=== PATIENT | female | born 1955 | race Caucasian/White ===

== ENCOUNTER → 2018-06-01 14:31 | Outpatient (CLI) | payer OTHER, SELFPAY ==
[2018-05-25 13:33] VITALS: BMI 31.8
--- NOTE | 2018-06-01 13:00 | ASPS_PTH ---
PATIENT: STEPHANIA PERES LOC: [facility] U#:[id number] AGE/SX: 69/F ROOM: RE06/01/[address]: Dr. Tae Samaniego MD : 1955 BED: DIS: SPEC #: [id number] RECD: 06/01/18 14:27 STATUS: SARAH REEulogio #: [id number] CAMMIE: 06/01/18 13:[address]: Tae Samaniego DEPT: CYTOLOGY RECD BY: Jose A Pierre ENTERED: 06/02/18 10:06 SP TYPE: ASPIRATION OTHR DR: Dr. Keven Hinds MD Tissues: Thyroid gland, NOS Procedures: FNA Specimen Adequacy Pap Stain (control) Special Stain Group II Surgery Specimen Level IV Cytology Other HEADER OPERATION: Ultrasound-guided fine needle aspiration left thyroid PRE-OP DIAGNOSIS: Multinodular goiter E04.2 TISSUE SUBMITTED: Fine needle aspiration left thyroid DIAGNOSIS CYTOLOGY Fine needle aspiration, left thyroid nodule (smear): Adequate for evaluation. Benign, consistent with benign follicular nodule. Mild chronic inflammation. AM:clover 06/05/18 COMMENT Immediate cytologic evaluation to determine adequacy is not applicable. CYTOLOGY STUDY Slides are reviewed. CYTOLOGY GROSS Received are 12 smears labeled with the patient's name and designated per the requisition as left thyroid. Submitted for staining. 06/02/18 TC: 5 CPT: 38922
--- OUTSIDE RECORDS SUMMARY | 2018-08-06 09:45 | XMS RPT_ITS ---
:1955 Author Organization OHIP Care Team Providers Name Role Phone FREDRICK MONTEZ (MEDIA JOB TITLES) Attending Unavailable YOAN VILLELA Referring Unavailable MELIDAMERARIE (MEDIA JOB TITLES) Referring Unavailable MELIDA, FREDRICK (MEDIA JOB TITLES) Referring Unavailable MELIDA, FREDRICK (MEDIA JOB TITLES) Referring Unavailable MELIDA, FREDRICK (MEDIA JOB TITLES) Referring Unavailable Tae Samaniego Attending Unavailable Yoan Villela Referring Unavailable Tae Samaniego Attending Unavailable Yoan Villela Referring Unavailable Tae Samaniego Attending Unavailable Tae Samaniego Referring Unavailable Yoan Villela Primary Care Unavailable PROBLEMS PROBLEMS DATE TYPE CONDITION / CODE ATTENDING STATUS SOURCE 06/01/2018 Unknown E04.2 - Nontoxic Tae Samaniego Active [place] [facility]ular [facility] goiter [facility] E04.2(ICD-10) Repository 04/27/2018 Active Encounter for NA Active [facility] screening [facility] mammogram for Repository malignant neoplasm of breast / Z12.31(ICD-10) 04/02/2016 Active Nontoxic NA Active [facility] multinodular [facility] [place] goiter / Repository E04.2(ICD-10) 04/27/2018 Active Encounter for NA Active [facility] screening for [facility] [place] lipoid disorders / Repository Z13.220(ICD-10) 04/27/2018 Active Encounter for NA Active [facility] screening for [facility] [place] diabetes mellitus Repository / Z13.1(ICD-10) 04/27/2018 Active Elevated NA Active [facility] blood-pressure [facility] [place] reading, without Repository diagnosis of hypertension / R03.0(ICD-10) 04/27/2018 Active Encounter for NA Active [facility] screening for [facility] [place] other viral Repository diseases / Z11.59(ICD-10) PROCEDURES PROCEDURES No Procedure Records FoundRESULTS RESULTS ASPIRATION (SLIDES Observed: 06/01/2018 Status: F Source: [place] ONLY) 1:00 PM [facility] REPOSITORY Patient: AFIA CARIAS : 1955 (62/F) Acct Num: [id number] Phys: Aden FERREIRA,Tae Unit Num: [id number] Loc: LABSPEC Specimen: [id number] Received: 06/01/18 - 142 Spec Type: ASPIRATION TISSUES 1 TISSUES: Thyroid gland, NOS COMMENT Immediate cytologic evaluation to determine adequacy is not applicable. CYTOLOGY GROSS Received are 12 smears labeled with the patient's name and designated per the requisition as left thyroid. Submitted for staining. / 06/02/18 TC: 5 CPT: 71554 CYTOLOGY STUDY Slides are reviewed. DIAGNOSIS CYTOLOGY Fine needle aspiration, left thyroid nodule (smear): Adequate for evaluation. Benign, consistent with benign follicular nodule. Mild chronic inflammation. AM:sp 06/05/18 HEADER OPERATION: Ultrasound-guided fine needle aspiration left thyroid PRE-OP DIAGNOSIS: Multinodular goiter E04.2 TISSUE SUBMITTED: Fine needle aspiration left thyroid Signed Garret Rodriguez DO 06/05/18 <signature on file> Performed By: #### PASPS #### [facility] [address] [place], [address] SURGERY VISIT REPORT Observed: 05/25/2018 Status: F Source: [place] 4[facility]59 [facility] RE[facility] [address] [place] [address] OFFICE VISIT Date of Service: 05/25/18 MR#: [id number] Acct: [id number] Name: AFIA CARIAS Rep #: [id number] : 1955 Provider: Tae Samaniego MD Age/Sex: 62/F Location: [facility] Status: Signed Intake Vital Signs05/25/18 Height 5 ft 6 in 05/25/18 Weight: 197 lb Intake Visit Reasons: Multinodular Goiter US [facility] 04/27 Radiological Equipment Specialist Required: No Is patient in pain?: No Allergies Penicillins Allergy (Intermediate, Verified 05/25/18 13:35) Rash Sulfa (Sulfonamide Antibiotics) Allergy (Intermediate, Verified 05/25/18 13:35) rapid heart rate, achiness Medications citalopram 20 mg tablet 20 mg PO DAILY 05/25/18 [History Confirmed 05/25/18] PFSH Medical History Depression (emotion) (Acute) Multinodular goiter (Acute) Surgical History History of section (Acute) Family History Aunt Breast cancer Father Hypertension High cholesterol Cancer skin cancer Social History Smoking Status: Unknown if ever smoked alcohol intake: current alcohol intake frequency: a few times a month substance use type: does not use HPI HPI HPI: AFIA CARIAS, is a 62 F who presents to the office today for reevaluation of multinodular goiter. Patient had a recent thyroid ultrasound on April 27, 2018. This was completed at the [facility] in [place]. This was made in comparison to the previous ultrasound which was done on March 2016. The right side had 2 nodules that had not significantly increased in size. The left side however did have a nodule that did increase in size previously it was 1.9 x 1 x 1.6 and the most recent one showed that it increased in size to 2.1 x 1.2-2 cm this is more than a 20% increase in volume. She has not had any neck pain. She has had no voice changes. She has not been exposed to any recent radiation. ROS General General: No weight change, appetite, fatigue, colon cancer, breast cancer or weakness HEENT HEENT: No difficulty swallowing, eye injury, eye surgery, swollen glands or hoarseness Endo Endocrine: No thyroid disease, diabetes mellitus, thyroid cancer, Hair loss, heat intolerance or cold intolerance Skin Skin: No rash or changing moles Breast Breast: No left breast lump, right breast lump, nipple discharge, breast pain, abnormal mammogram, abnormal US or breast enlargement Musc Musculoskeletal: No back problems, arthritis, rheumatoid arthritis, gout or joint pain Cardio Cardiovascular: No murmur, pacemaker, heart disease, atrial fibrillation, high blood pressure, heart attack, heart stent, palpitations, shortness of breat with exertion or chest pain Psych Psychiatric: No depression, anxiety or hearing voices Resp Respiratory: No shortness of breath, No sleep apnea, No cough, No COPD, No asthma, No emphysema, No wheezing Gastro Gastrointestinal: No abdominal pain, No nausea or vomiting, No diarrhea, No constipation, No blood in stool, No acid reflux, No hemorrhoids, No ulcers, No gallbladder problem, No black,tarry stools Wilfredo Hematologic: No blood thinners, No blood disorders, No bleeding, No anemia, No blood clots Neuro Neurologic: No system reviewed and no additional complaints, except as docu, No as per HPI, No abnormal walking, No abnormal hearing, No abnormal movements, No abnormal speech, No behavioral changes, No burning sensations, No confusion, No seizure-like activity, No unsteadiness, No dizziness, No localized weakness, No frequent falls, No headache(s), No lack of coordination, No loss of vision, No memory loss, No numbness, No other visual disturbances, No radiating pain, No restless legs, No sensory deficit, No fainting, No tingling, No tremor(s), No weakness, No other Exam Const General: well developed, no acute distress, well hydrated Orientation: oriented to person, oriented to place, oriented to time [facility] Head: normocephalic, atraumatic Ears: external ears normal Mouth: moist mucous membranes Other: Thyroid Exam: There are no hard palpable nodules identified. I cannot palpate any lymphadenopathy. There is no tenderness on exam Eyes Sclera: sclerae normal Pupils: normal by confrontation Neck Neck: no lymphadenopathy noted Neck mass: No Thyroid: symmetrical, thyroid normal Chest Breast Palpation: No nipple discharge Cardio Heart Sounds: no murmurs Assessment AND Plan Problems 1. Multinodular goiter (nontoxic) E04.2 Plan I am going to perform a repeat fine-needle aspiration of the left thyroid nodule. Since there has not been an increase in the size in the right side it does not need to be biopsied at this time. We discussed the risks and benefits of the planned procedure. I have informed the patient that complications can occur including failure to complete the procedure. The patient had the opportunity to ask questions concerning the planned procedure. My staff has also explained the procedure to the patient in understandable terms and has given the patient printed material concerning the procedure. The patient freely consents to the procedure. Coding Level of Care Code Off vis,est,level 3 Diagnoses Multinodular goiter (nontoxic) E04.2 05/25/18 [id number] <Electronically signed by Tae Samaniego MD> Date Tae Samaniego MD Cosigner Signature: Date (if applicable) CC: MANAGER TRAINING AND DEVELOPMENTRyan Montez; Yoan Villela MD CNNURSE Observed: 05/04/2018 Status: COMPLETED Source: [place] 9:15 AM [facility] REPOSITORY Nurse Visit (FAMPWS) AFIA CARIAS ([id number]) 1955 F Date Time Provider Department 05/04/18 9:15 AM [place] NURSE FAMPWS During your visit today, we recorded the following information about you: Pulse Blood pressure 76/minute 128/86 Kiran Colindres LPN 05/04/2018 9:19 AM Signed Manual Readin/86 Pulse: 76 Reason for blood pressure check - Last BP elevated Patient is: Taking medication as prescribed Yes Took medication today Yes If no, date medication last taken N/A Experiencing side effects No BP was elevated at last appt with Fredrick Montez CNP, on 04/13/18. No BP medication changes were made at that time. Taking all medications as prescribed. Denies any chest pain, shortness of breath, dizziness, or headaches. Daily caffeine use. No personal history of tobacco use; no current exposure. Alert and oriented. Pt has been identified by name and birthdate: Yes Allergies reviewed: Yes Latex allergy: no. Medication - prescribed and OTC reviewed and updated: Yes Do you need any prescription refills prior to your next visit: No Health Maintenance: Reviewed and up to date Patient advised to continue with current medications and would be contacted with any further instructions after review by Dr data control clerk. Kiran Colindres LPN Referring Provider: FREDRICK MONTEZ (MEDIA JOB TITLES) [[id number]] Allergies As of Date: 05/04/2018 Noted Allergy Reaction AMOXICILLIN 10/20/2015 2 - Rash MACROBID (NITROFURANTOIN MONOHYD/*10/20/2015 5 - Intolerance PENICILLIN 10/20/2015 2 - Rash SULFA (SULFONAMIDE ANTIBIOTICS) 10/20/2015 14 - Other: See Comments Comments: Caused pt to feel very ill, tingling in fingers, SOB, chest pains Date Reviewed: 04/13/2018 Reviewed by: Chasidy Lutz Dance Coach - Fully Assessed Reason for Visit: Blood Pressure Check [195] Primary Visit Diagnosis:Elevated blood pressure reading without diagnosis of hypertension [R03.0] Prescriptions as of 05/04/2018 Sig: CITALOPRAM 20 MG TABLET Take 1 tablet by mouth once d* ESTRADIOL 0.01% (0.1 MG/GRAM)* Use 1 g vaginally twice a wee* Problem List As Of Date 05/04/2018 Noted Resolved Mild depression (HCC) [F32.0] INVALID FOR* Anxiety disorder [F41.9] INVALID FOR* Multinodular goiter [E04.2] INVALID FOR* 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] INVALID FOR* Encounter Status:Closed by KIRAN COLINDRES LPN on 05/04/18 PROGRESS Observed: 05/04/2018 Status: COMPLETED Source: [place] 9:14 AM [facility] REPOSITORY HNO ID: [id number] Author: Kiran Colindres LPN Service: (none) Author Type: (none) Type: Progress Notes Filed: 05/04/2018 9:19 AM Note Text: Manual Readin/86 Pulse: 76 Reason for blood pressure check - Last BP elevated Patient is: Taking medication as prescribed Yes Took medication today Yes If no, date medication last taken N/A Experiencing side effects No BP was elevated at last appt with Fredrick Montez CNP, on 04/13/18. No BP medication changes were made at that time. Taking all medications as prescribed. Denies any chest pain, shortness of breath, dizziness, or headaches. Daily caffeine use. No personal history of tobacco use; no current exposure. Alert and oriented. Pt has been identified by name and birthdate: Yes Allergies reviewed: Yes Latex allergy: no. Medication - prescribed and OTC reviewed and updated: Yes Do you need any prescription refills prior to your next visit: No Health Maintenance: Reviewed and up to date Patient advised to continue with current medications and would be contacted with any further instructions after review by Dr data control clerk. Kiran Colindres LPN CNCO Observed: 04/27/2018 Status: COMPLETED Source: [place] 12:21 PM [facility] REPOSITORY HNO ID: [id number] Author: Mammography Coordinator Service: (none) Author Type: Physician Type: Letter Filed: 05/01/2018 11:31 PM Note Text: April 27, 2018 PID: [id number] Afia Carias [address] [place] [address] Dear Ms. Carias, We are pleased to inform you that the results of your recent breast imaging exam on 04/27/2018 are normal. Early detection of cancer is very important. We also understand recommendations regarding breast cancer screening are controversial. Please discuss with your primary care provider which strategy is best for you and whether a mammogram is right for you. Your imaging studies and report will be kept on file at [facility] as part of your permanent medical record and are available for your continuing care. Thank you for allowing us to help in meeting your health care needs. Sincerely, Dr. Hernandez Interpreting Radiologist [facility] (Normal over 40) [facility] SCREENING Observed: 04/27/2018 Status: F Source: [place] 9:24 AM [facility] REPOSITORY * * *Final Report* * * DATE OF EXAM: Apr 27 2018 9:24AM WRW [id number] - [facility] SCREENING / PROCEDURE REASON: Screening for breast cancer * * * * Physician Interpretation * * * * RESULT: #[id number] - [facility] SCREENING BILATERAL DIGITAL SCREENING MAMMOGRAM WITH CAD: 04/27/2018 HISTORY: Screening For Breast Cancer /patient reports NO breast symptoms /priors available for comparison. RESULT: TECHNIQUE: The study was acquired using full field digital technology and interpreted from soft copy. Current study was also evaluated with a Computer Aided Detection (CAD). Comparison is made to exam dated: 03/19/2016 mammogram - [facility]. There are scattered fibroglandular elements in both breasts. No significant masses, calcifications, or other findings are seen in either breast. There has been no significant interval change. IMPRESSION: There is no mammographic evidence of malignancy. A 1 year screening mammogram is recommended. Amina Hernandez M.D., mc/maria g:04/27/2018 12:21:53 Student Career Development Specialist(s): RT Amina(Rachel)(Lisa), [facility] letter sent: Normal over 40 Mammogram BI-RADS: 1 Negative Multiple national specialty organizations have released breast cancer screening guidelines for women at average risk for developing breast cancer - guidelines that are based on both evidence and opinion, yet differ on when to start and how often to screen for breast cancer. With representation from Breast Imaging, Internal Medicine, Women's Health, Family Medicine, and Medical/Surgical Oncology, the [facility] has carefully reviewed the data and reached the following consensus: 1) All women should engage in shared decision-making with their providers to decide when to start and how often to screen; 2) All women should have the opportunity to start screening mammography at age 40; 3) For women ages 45-55, we recommend annual screening mammograms; 4) For women ages 55 and over, we support both the transition from an annual to a biennial interval if this aligns more with patient's values and preferences, or continuation with annual screening; 5) All women should discuss with their providers when to stop screening mammograms. Floor Specialist: Maria G Transcribe Date/Time: Apr 27 2018 9:25A Dictated by: AMINA ALEXANDRE MD This examination was interpreted and the report reviewed and electronically signed by: AMINA ALEXANDRE MD on Apr 27 2018 12:21PM EST [id number] PROGRESS Observed: 04/27/2018 Status: COMPLETED Source: [place] 9:12 AM [facility] REPOSITORY HNO ID: [id number] Author: Vivien Parada Rdms Service: (none) Author Type: (none) Type: Progress Notes Filed: 04/27/2018 9:12 AM Note Text: Radiology Service Progress Note PATIENT NAME: Afia Carias DATE OF SERVICE: April 27, 2018 TIME: 9:12 AM PATIENT IDENTITY VERIFICATION COMPLETED USING TWO (2) METHODS: Patient confirmed name verbally and Date of . PATIENT GENDER DATA: Female. status: : No status: NO. PATIENT RELEVANT IMPLANT DATA REVIEWED: Not Applicable RADIOLOGY DEPARTMENT: Ultrasound PERIPHERAL IV DATA: Not applicable SIGNED BY: Vivien Parada Rdms April 27, 2018 9:12 AM US THYROID/PARATHYROID Observed: 04/27/2018 Status: F Source: [place] 9:11 AM [facility] REPOSITORY * * *Final Report* * * DATE OF EXAM: Apr 27 2018 9:11AM WRU [id number] - US THYROID/PARATHYROID / PROCEDURE REASON: Multinodular goiter * * * * Physician Interpretation * * * * THYROID ULTRASOUND COMPARISON: 03/26/2016 INDICATION: Multinodular goiter, nodule follow-up TECHNIQUE: Real-time méndez scale ultrasound imaging of the thyroid was performed with color Doppler imaging. Images were obtained and stored in a permanent archive. RESULT: Thyroid is homogeneous in echotexture. Symmetric Doppler signal to both thyroid lobes without hyperemia. Right thyroid lobe: Size: 5.5 x 2.2 x 2.5 cm (cc by AP by transverse) Nodules: Vascular, mildly heterogeneous 3.2 x 1.8 x 2.4 cm (previously 3.1 x 1.8 x 2.6 cm) mid pole nodule. Mildly heterogeneous, avascular 1.1 x 0.9 x 0.9 cm (previously 1.1 x 0.9 x 0.8 cm) medial mid/lower pole nodule. Left thyroid lobe: Size: 5.6 x 1.7 x 1.5 cm (cc by AP by transverse) Nodules: Isoechoic, mildly vascular 2.1 x 1.2 x 2 cm (previously 1.9 x 1 x 1.6 cm) lower pole nodule. Isthmus: Size: 0.5 cm (AP) Nodules: None IMPRESSION: Left thyroid nodule may have mildly enlarged in the interim. Stable right thyroid nodules. Floor Specialist: PSCB Transcribe Date/Time: Apr 28 2018 10:24A Dictated by : ALTHEA VELOZ MD This examination was interpreted and the report reviewed and electronically signed by: ALTHEA VELOZ MD on Apr 28 2018 10:30AM EST [id number] PROGRESS Observed: 04/27/2018 Status: COMPLETED Source: [place] 9:04 AM [facility] REPOSITORY HNO ID: [id number] Author: Kayce Smalls Service: (none) Author Type: (none) Type: Progress Notes Filed: 04/27/2018 9:26 AM Note Text: Radiology Service Progress Note PATIENT NAME: Afia Carias DATE OF SERVICE: April 27, 2018 TIME: 9:04 AM PATIENT IDENTITY VERIFICATION COMPLETED USING TWO (2) METHODS: Patient confirmed name verbally and Date of . PATIENT GENDER DATA: Female. status: : No status: NO. PATIENT RELEVANT IMPLANT DATA REVIEWED: Not Applicable RADIOLOGY DEPARTMENT: Women's Health yessi scr mammogram PERIPHERAL IV DATA: Not applicable SIGNED BY: Kayce Smalls April 27, 2018 9:04 AM HEP C AB IA W/CONF Collected: 04/27/2018 Status: F Source: [place] 8:05 AM [facility] REPOSITORY TYPE CODE TESTS RESULT OUT OF REFERENCE UNITS RANGE LAB AHCV Negative Hepatitis C Ab Negative IA Performed By: #### AHCV1B, BMP, LIPNF #### [facility] [address] [place], [place] [address] BASIC METABOLIC PANL Collected: 04/27/2018 Status: F Source: [place] 8:05 AM [facility] REPOSITORY TYPE CODE TESTS RESULT OUT OF REFERENCE UNITS RANGE LAB GLU 74-99 mg/dL Glucose 88 Result Comment: The [place] Diabetes Association (ADA) provides guidance for cutoff values for fasting glucose and random glucose. The ADA defines fasting as no caloric intake for at least 8 hours. Fas ting plasma glucose results between 100 to 125 mg/dL indicate increased risk for diabetes (prediabetes). Fasting plasma glucose results greater than or equal to 126 mg/dL meet the criteria for diagnosis of diabetes. In the absence of unequivocal hyperglycemia, results should be confirmed by repeat testing. In a patient with classic symptoms of hyperglycemia or hyperglycemic crisis, random plasma glucose results greater than or equal to 200 mg/dL meet the criteria for diagnosis of diabetes. Reference: Standards of Medical Care in Diabetes 2016, [place] Diabetes Association. Diabetes Care. 2016.39(Suppl 1). LAB BUN 7-21 mg/dL BUN 16 LAB CRET 0.58-0.96 mg/dL Creatinine 0.79 LAB NA 136-144 mmol/L Sodium 140 LAB K 3.7-5.1 mmol/L Potassium 4.1 LAB CL 97-105 mmol/L Chloride 101 LAB CO2 22-30 mmol/L CO2 26 LAB AGAP 9-18 mmol/L Anion Gap 13 LAB CA 8.5-10.2 mg/dL Calcium, Total 9.5 LAB GFRAA eGFR- Amer. >60 LAB GFRNAA . eGFR-All Other Races >60 Result Comment: eGFR (Estimated GFR) Units of measure: mL/min/1.73 meters squared eGFR is derived from the reexpressed MDRD Study equation using the following parameters: serum creatinine, age, gender and race. The creatinine assay has been calibrated to be traceable to IDMS. An eGFR <60 mL/min/1.73m2 for >3 months is consistent with chronic kidney disease. Refer to KDOQI guidelines for clinical interpretation. In patients with unstable renal function, e.g. those with acute kidney injury, the eGFR may not accurately reflect actual GFR. Performed By: #### AHCV1B, BMP, LIPNF #### [facility] [address] [place], [place] [address] LIPID PANEL, NONFAST Collected: 04/27/2018 Status: F Source: [place] 8:05 AM [facility] REPOSITORY TYPE CODE TESTS RESULT OUT OF REFERENCE UNITS RANGE LAB CHOLNF <200 mg/dL Total High Cholesterol NF 229 Result Comment: <200 mg/dL, Desirable 200-239 mg/dL, Borderline high >239 mg/dL, High LAB TRIGNF <150 mg/dL Triglycerides, NF High 163 Result Comment: <150 mg/dL, Normal 150-199 mg/dL, Borderline high 200-499 mg/dL, High >499 mg/dL, Very high LAB HDLNF >39 mg/dL HDL Cholesterol, NF 50 Result Comment: 40-59 mg/dL, Acceptable >59 mg/dL, High: Negative risk factor for coronary heart disease <40 mg/dL, Low: Positive risk factor for coronary heart disease LAB LDLNF <100 mg/dL LDL Cholesterol, High NF 146 Result Comment: <100 mg/dL, Optimal 100-129 mg/dL, Near optimal/above optimal 130-159 mg/dL, Borderline high 160-189 mg/dL, High >189 mg/dL, Very high Secondary prevention optimal LDL Cholesterol levels are recommended to be < 70 mg/dL LAB NOHDLN <130 mg/dL High Non HDL Chol, 179 NF Result Comment: <130 mg/dL, Optimal 130-159 mg/dL, Near optimal/above optimal 160-189 mg/dL, Borderline high 190-219 mg/dL, High >219 mg/dL, Very high Secondary prevention optimal non HDL Cholesterol levels are recommended to be < 100 mg/dL LAB VLDLNF <30 mg/dL VLDL Cholesterol, High NF 33 LAB TCHDLN <5.10 mg/dL T Chol/HDL Ratio NF 4.58 LAB LDLHDN <2.54 mg/dL LDL/HDL Ratio, NF High 2.92 Result Comment: Reference: 1. National Cholesterol Education Program ATP III Guideline At-A-Glance Quick Desk Reference: National Heart, Lung, and Blood [place]. National Institutes of Health. 2001: NIH Publication No. 01-3305. 2. An International Atherosclerosis Society position paper: global recommendations for the management of dyslipidemia: executive summary, Atherosclerosis. 2014: 232(2):410-413. Performed By: #### AHCV1B, BMP, LIPNF #### [facility] [address] [place], [place] [address] PROGRESS Observed: 04/13/2018 Status: COMPLETED Source: [place] 8:10 AM [facility] REPOSITORY HNO ID: [id number] Author: Fredrick Montez Service: (none) Author Type: Nurse Practitioner Type: Progress Notes Filed: 04/13/2018 8:32 AM Note Text: Chief Complaint Patient presents with: Refill Request HPI Afia Carias is a 62 year old female who presents here today for Above Complaints. Patient presents to the office today for one-year follow-up for anxiety, depression. Patient is currently on Celexa 20 mg once daily. Has been on Celexa 20 mg once daily for an extended period time. The most part she has been stable on this dose. She states that she has discontinued Celexa 20 mg in the past and not done well. Currently denying any complaint of suicidal or homicidal ideations. Denies any panic attacks recently. Did have one over 15 years ago. Blood pressure is elevated today in office, no family history of hypertension. No personal history of hypertension. no complaints of chest pain, shortness of breath, leg swelling. Admits that she does not follow specific diet. Denies adding any additional salt to her diet. NSAIDs. Averages 3-4 drinks a week. Patient also has a history of multinodular goiter. Last ultrasound and subsequent fine-needle biopsy was in 2015. Dr. Samaniego had mentioned that patient needs repeat ultrasound of thyroid yearly and subsequent fine-needle biopsy if areas are growing more than 20%. She has not had any further ultrasound since this occurrence. Does not feel that she has an enlarged thyroid at this time. She is due for a mammogram, diabetes and cholesterol screening. Past medical history, appointments, medications, allergies reviewed. Previous Medical History PAST MEDICAL HISTORY Diagnosis Date - Anxiety - Mild depression (HCC) - Recurrent UTI Previous Surgical History PAST SURGICAL HISTORY Procedure Laterality Date - COLONOSCOP W/ OR W/O [facility] SPEC 12/15/2015 Colonoscopy Family History FAMILY HISTORY Problem Relation Age of Onset - Cancer Mother 48 lung and brain - Cancer Father 94 melanoma Patient Allergies ALLERGIES Allergen Reactions - Amoxicillin Rash - Macrobid [Nitrofura* Intolerance - Penicillin Rash - Sulfa (Sulfonamide * Other: See Comments Caused pt to feel very ill, tingling in fingers, SOB, chest pains Current Medications Current Outpatient Prescriptions on File Prior to Visit: citalopram (CELEXA) 20 mg tablet Take 1 tablet by mouth once daily. estradiol (ESTRACE) 0.01 % (0.1 mg/gram) vaginal cream Use 1 g vaginally twice a week. No current facility-administered medications on file prior to visit. Social History Social History Marital status: Spouse name: Years of education: Number of children: Occupational History Occupation Employer Comment [employer] Social History Main Topics Smoking status: Never Smoker Smokeless tobacco: Never Used Alcohol use: Yes 3.0 oz/week Glasses of Wine (5oz): 2 per week Drug use: No REVIEW OF SYSTEMS: as above ? Reviewed relevant PMHx, PSHx, Social Hx, current medications and allergies. EXAM: BP 150/96 (BP Site: Left Arm) Pulse 64 Wt 89.4 kg (197 lb) BMI 32.78 kg/m? General Appearance: Well appearing, alert, in no acute distress, well-hydrated, well nourished. and Overweight. Head: Normocephalic, no masses, lesions, tenderness or abnormalities. Eyes: Anicteric sclera. Pupils are equally round and reactive to light. Extraocular movements are intact. . Ears: External ears normal, canals clear. Nose/Sinuses: Nares normal, septum midline, mucosa normal, no drainage or sinus tenderness. Oropharynx: Lips, mucosa, and tongue normal, teeth and gums normal, oropharynx normal. Neck: Supple, no adenopathy; thyroid symmetric, normal size. Lungs: lungs clear to auscultation. No wheezing, rhonchi, rales. Heart: RRR without murmur, gallop, or rubs. No ectopy. Extremities: No deformities, edema. Health Maintenance List HEPATITIS C SCREENING due on 1999 LIPID SCREEN due on 12/20/2000 DIABETES SCREEN due on 12/20/2000 MAMMOGRAM due on 03/19/2017 INFLUENZA(1) due on 01/14/2018 PAP EVERY 5 YEARS due on 03/15/2021 HPV EVERY 5 YEARS due on 03/15/2021 DTAP,TDAP,TD(2 - Td) due on 10/19/2024 COLORECTAL CANCER SCREENING,SEE MODIFIER due on 12/14/2025 Data reviewed Component Latest Ref Rng AND Units 03/15/2016 T4 5.0 - 11.0 ug/dL 6.2 T4 Uptake 0.70 - 1.20 0.99 FTI 6.0 - 11.0 ug/dL 6.3 TSH 0.400 - 5.500 uU/mL 2.070 T3 94 - 170 ng/dL 83 (L) Free T4 0.7 - 1.8 ng/dL 1.2 ASSESSMENT/PLAN: 1. Mild depression (HCC) - ICD9: 311, ICD10: F32.0 (primary diagnosis) - stable, continue current medication - CITALOPRAM 20 MG TABLET 2. Anxiety disorder, unspecified type - ICD9: 300.00, ICD10: F41.9 -stable continue current medication - CITALOPRAM 20 MG TABLET 3. Screening for breast cancer - ICD9: V76.10, ICD10: Z12.31 - ELIZABETH SCREENING 4. Screening for diabetes mellitus - ICD9: V77.1, ICD10: Z13.1 - BASIC METABOLIC PNL 5. Screening for lipid disorders - ICD9: V77.91, ICD10: Z13.220 - LIPID PANEL, NONFASTING 6. Multinodular goiter - ICD9: 241.1, ICD10: E04.2 - repeat ultrasound thyroid, if substantial growth is found, referred to general surgery for fine-needle aspiration. - US THYROID/PARATHYROID 7. Elevated blood pressure reading without diagnosis of hypertension - ICD9: 796.2, ICD10: R03.0 Likely PreHypertension - Encouraged dietary sodium restriction/DASH diet - Recommended regular aerobic exercise. - Recommend home blood pressure monitoring, to bring results in on next visit - Discussed need and benefit for weight loss. - BASIC METABOLIC PNL 8. Encounter for hepatitis C screening test for low risk patient - ICD9: V73.89, ICD10: Z11.59 - HEP C AB IA W/CONF SCRN follow-up in 2-3 weeks with nurse visit to recheck blood pressure. Discussed possibly starting a antihypertensive if this blood pressure is still elevated. Fredrick Montez APRN.MEDIA JOB TITLES CNOV Observed: 04/13/2018 Status: COMPLETED Source: [place] 8:00 AM [facility] REPOSITORY [facility] AFIA CARIAS ([id number]) 1955 F Date Time Provider Department 04/13/18 8:00 AM FREDRICK MONTEZ ([place]) RAKESH During your visit today, we recorded the following information about you: Pulse Blood pressure Weight 64/minute 150/96 89.4 kg Fredrick Montez APRN.CNP 04/13/2018 8:32 AM Signed Chief Complaint Patient presents with: Refill Request HPI Afia Carias is a 62 year old female who presents here today for Above Complaints. Patient presents to the office today for one-year follow-up for anxiety, depression. Patient is currently on Celexa 20 mg once daily. Has been on Celexa 20 mg once daily for an extended period time. The most part she has been stable on this dose. She states that she has discontinued Celexa 20 mg in the past and not done well. Currently denying any complaint of suicidal or homicidal ideations. Denies any panic attacks recently. Did have one over 15 years ago. Blood pressure is elevated today in office, no family history of hypertension. No personal history of hypertension. no complaints of chest pain, shortness of breath, leg swelling. Admits that she does not follow specific diet. Denies adding any additional salt to her diet. NSAIDs. Averages 3-4 drinks a week. Patient also has a history of multinodular goiter. Last ultrasound and subsequent fine-needle biopsy was in 2015. Dr. Samaniego had mentioned that patient needs repeat ultrasound of thyroid yearly and subsequent fine-needle biopsy if areas are growing more than 20%. She has not had any further ultrasound since this occurrence. Does not feel that she has an enlarged thyroid at this time. She is due for a mammogram, diabetes and cholesterol screening. Past medical history, appointments, medications, allergies reviewed. Previous Medical History PAST MEDICAL HISTORY Diagnosis Date - Anxiety - Mild depression (HCC) - Recurrent UTI Previous Surgical History PAST SURGICAL HISTORY Procedure Laterality Date - COLONOSCOP W/ OR W/O [facility] SPEC 12/15/2015 Colonoscopy Family History FAMILY HISTORY Problem Relation Age of Onset - Cancer Mother 48 lung and brain - Cancer Father 94 melanoma Patient Allergies ALLERGIES Allergen Reactions - Amoxicillin Rash - Macrobid [Nitrofura* Intolerance - Penicillin Rash - Sulfa (Sulfonamide * Other: See Comments Caused pt to feel very ill, tingling in fingers, SOB, chest pains Current Medications Current Outpatient Prescriptions on File Prior to Visit: citalopram (CELEXA) 20 mg tablet Take 1 tablet by mouth once daily. estradiol (ESTRACE) 0.01 % (0.1 mg/gram) vaginal cream Use 1 g vaginally twice a week. No current facility-administered medications on file prior to visit. Social History Social History Marital status: Spouse name: Years of education: Number of children: Occupational History Occupation Employer Comment [employer] Social History Main Topics Smoking status: Never Smoker Smokeless tobacco: Never Used Alcohol use: Yes 3.0 oz/week Glasses of Wine (5oz): 2 per week Drug use: No REVIEW OF SYSTEMS: as above ? Reviewed relevant PMHx, PSHx, Social Hx, current medications and allergies. EXAM: BP 150/96 (BP Site: Left Arm) Pulse 64 Wt 89.4 kg (197 lb) BMI 32.78 kg/m? General Appearance: Well appearing, alert, in no acute distress, well-hydrated, well nourished. and Overweight. Head: Normocephalic, no masses, lesions, tenderness or abnormalities. Eyes: Anicteric sclera. Pupils are equally round and reactive to light. Extraocular movements are intact. . Ears: External ears normal, canals clear. Nose/Sinuses: Nares normal, septum midline, mucosa normal, no drainage or sinus tenderness. Oropharynx: Lips, mucosa, and tongue normal, teeth and gums normal, oropharynx normal. Neck: Supple, no adenopathy; thyroid symmetric, normal size. Lungs: lungs clear to auscultation. No wheezing, rhonchi, rales. Heart: RRR without murmur, gallop, or rubs. No ectopy. Extremities: No deformities, edema. Health Maintenance List HEPATITIS C SCREENING due on 1999 LIPID SCREEN due on 12/20/2000 DIABETES SCREEN due on 12/20/2000 MAMMOGRAM due on 03/19/2017 INFLUENZA(1) due on 01/14/2018 PAP EVERY 5 YEARS due on 03/15/2021 HPV EVERY 5 YEARS due on 03/15/2021 DTAP,TDAP,TD(2 - Td) due on 10/19/2024 COLORECTAL CANCER SCREENING,SEE MODIFIER due on 12/14/2025 Data reviewed Component Latest Ref Rng AND Units 03/15/2016 T4 5.0 - 11.0 ug/dL 6.2 T4 Uptake 0.70 - 1.20 0.99 FTI 6.0 - 11.0 ug/dL 6.3 TSH 0.400 - 5.500 uU/mL 2.070 T3 94 - 170 ng/dL 83 (L) Free T4 0.7 - 1.8 ng/dL 1.2 ASSESSMENT/PLAN: 1. Mild depression (HCC) - ICD9: 311, ICD10: F32.0 (primary diagnosis) - stable, continue current medication - CITALOPRAM 20 MG TABLET 2. Anxiety disorder, unspecified type - ICD9: 300.00, ICD10: F41.9 -stable continue current medication - CITALOPRAM 20 MG TABLET 3. Screening for breast cancer - ICD9: V76.10, ICD10: Z12.31 - ELIZABETH SCREENING 4. Screening for diabetes mellitus - ICD9: V77.1, ICD10: Z13.1 - BASIC METABOLIC PNL 5. Screening for lipid disorders - ICD9: V77.91, ICD10: Z13.220 - LIPID PANEL, NONFASTING 6. Multinodular goiter - ICD9: 241.1, ICD10: E04.2 - repeat ultrasound thyroid, if substantial growth is found, referred to general surgery for fine-needle aspiration. - US THYROID/PARATHYROID 7. Elevated blood pressure reading without diagnosis of hypertension - ICD9: 796.2, ICD10: R03.0 Likely PreHypertension - Encouraged dietary sodium restriction/DASH diet - Recommended regular aerobic exercise. - Recommend home blood pressure monitoring, to bring results in on next visit - Discussed need and benefit for weight loss. - BASIC METABOLIC PNL 8. Encounter for hepatitis C screening test for low risk patient - ICD9: V73.89, ICD10: Z11.59 - HEP C AB IA W/CONF SCRN follow-up in 2-3 weeks with nurse visit to recheck blood pressure. Discussed possibly starting a antihypertensive if this blood pressure is still elevated. Fredrick Montez APRN.MEDIA JOB TITLES Referring Provider: YOAN VILLELA [[id number]] Allergies As of Date: 04/13/2018 Noted Allergy Reaction AMOXICILLIN 10/20/2015 2 - Rash MACROBID (NITROFURANTOIN MONOHYD/*10/20/2015 5 - Intolerance PENICILLIN 10/20/2015 2 - Rash SULFA (SULFONAMIDE ANTIBIOTICS) 10/20/2015 14 - Other: See Comments Comments: Caused pt to feel very ill, tingling in fingers, SOB, chest pains Date Reviewed: 04/13/2018 Reviewed by: Chasidy Lutz Dance Coach - Fully Assessed Reason for Visit: Refill Request [94] Primary Visit Diagnosis:Mild depression (HCC) [F32.0] Other Visit Diagnoses:Anxiety disorder, unspecified type [F41.9] Screening for breast cancer [Z12.31] Screening for diabetes mellitus [Z13.1] Screening for lipid disorders [Z13.220] Multinodular goiter [E04.2] Elevated blood pressure reading without diagnosis of hypertension [R03.0] Encounter for hepatitis C screening test for low risk patient [Z11.59] Order(s):citalopram (CELEXA) 20 mg tabletTake 1 tablet by mouth once daily.Disp: 30 tabletRfl: 11 ELIZABETH SCREENING [[id number]] Order #: [id number] FUTURE LIPID PANEL, NONFASTING [SQLIPNF] Order #: [id number] FUTURE BASIC METABOLIC PNL [SQBMP] Order #: [id number] FUTURE US THYROID/PARATHYROID [[id number]] Order #: [id number] FUTURE HEP C AB IA W/CONF SCRN [[id number]] Order #: [id number] FUTURE Prescriptions as of 04/13/2018 Sig: ESTRADIOL 0.01% (0.1 MG/GRAM)* Use 1 g vaginally twice a wee* CITALOPRAM 20 MG TABLET Take 1 tablet by mouth once d* Problem List As Of Date 04/13/2018 Noted Resolved Mild depression (HCC) [F32.0] INVALID FOR* Anxiety disorder [F41.9] INVALID FOR* Multinodular goiter [E04.2] INVALID FOR* 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 Medications Discontinued During This Encounter codeine-guaiFENesin (ROBITUSSIN AC) * 120 * 0 08/16/2016 04/13/2018 Class: Print RX Route: ORAL Sig: Take 5-10 mL by mouth four times daily as needed for Cough. May cause drowsiness. Disc: Course of therapy completed acyclovir (ZOVIRAX) 5 % ointment 60 g 2 09/13/2016 04/13/2018 Route: TOPICAL Sig: Apply 1 application to affected area five times daily. Disc: Course of therapy completed citalopram (CELEXA) 20 mg tablet 30 t* 11 04/08/2017 04/13/2018 Route: ORAL Sig: Take 1 tablet by mouth once daily. Disc: Reason for discontinue is not on file. Disposition: Return in about 3 weeks (around 05/04/2018) for BP check with nurse. Follow-up and Disposition History Recorded Encounter Status:Closed by FREDRICK MONTEZ CNP on 04/13/18 ALLERGIES ALLERGIES DATE TYPE / NAME / CODE REACTION SEVERITY SOURCE CODE 06/01/2018 Drug Penicillins/[id number] Rash [facility] Allergy/41 76(RXNORM) Community [id number]([facility]) Repository 06/01/2018 Drug Sulfa (Sulfonamide rapid heart rate, [place] Allergy/41 Antibiotics)/[id number] achiness Community [id number]([facility](RXNORM) [facility]) Repository 10/20/2015 DRUG AMOX[place]ILLIN [place] Clinic Main [id number]([facility]) Repository 10/20/2015 DRUG/49758 NITROFURANTOIN INTOLERANCE [place] 1003([facility] Clinic Main D CT) [place] Repository 10/20/2015 DRUG PENICILLIN RASH [place] [facility] Main [id number]([facility]) Repository 10/20/2015 Drug SULFA (SULFONAMIDE OTHER: SEE C [place] Class/4195 ANTIBIOTICS) Clinic Main [address]([facility] ED [facility]) Repository ENCOUNTERS ENCOUNTERS ADMIT/DISCHARGE ACCOUNT ADMITTING ENCOUNTER LOCATION SOURCE NUMBER CLASS 06/01/2018 [id number] Ambulatory [facility] ing:LABSPEC Repository 06/01/2018/06/01/19 [id number] Ambulatory BMSBuilding:B [place] [address] MS.[facility] Repository 05/25/2018/05/25/19 [id number] Ambulatory BMSBuilding:B [place] [address] MS.[facility] Repository 05/04/2018/05/04/20 [id number] Ambulatory [address] Repository 04/27/2018/04/27/20 [id number] Ambulatory [address] Repository 04/27/2018/04/27/20 [id number] Ambulatory [address] Repository 04/27/2018/04/27/20 [id number] Ambulatory [address] Repository 04/13/2018/04/14/20 [id number] Ambulatory [address] Repository PAYERS PAYERS ENCOUNTER GUARANTOR PAYER SUBSCRIBER SOURCE 06/01/2018 AFIA Gonzalez Primary AFIA Gonzalez [place] [id number] Insurance:AULTCAREPol HUMRICHOUSERDOB: [facility] Number: [id number] [id number] Repository [address]Zry: 330) Date:7209-61-54YF [phone] () [address] [phone]: 06/01/2018 Secondary NOT GIVENUNK [place] Insurance:SELF PAY [facility] Number: Effective Repository Date:2018-06-01 06/01/2018 AFIA Gonzalez Primary AFIA Gonzalez [place] [id number] Insurance:AULTCAREPol HUMRICHOUSERDOB: [facility] Number: [id number], [place] [id number] Repository [address]Ooy: ([phone]) Date:[id number] [phone] () [address] [address]DJ: 06/01/2018 Secondary NOT GIVENUNK [place] Insurance:SELF PAY [facility] Number: Effective Repository Date:2018-06-01 05/25/2018 AFIA Gonzalez Primary AFIA Gonzalez [place] [id number] Insurance:AULTCAREPol HUMRICHOUSERDOB: [facility] Number: [id number], [place] [id number] Repository [address]Pei: ([phone]) Date:[id number] [phone] (ZZ) [address] [address]PF: 05/25/2018 Secondary NOT GIVENUNK [place] Insurance:SELF PAY [facility]: Effective Repository Date:2018-05-23
== END ==
PROVIDERS: Family Provider Family Medicine; PCP Family Medicine; Referring Provider Surgery; Visit Provider Surgery
DX: E04.2 Nontoxic multinodular goiter (principal)
CPT/HCPCS: 88161; 88172; 88305; 88313